=== PATIENT | female | born 1975 | race Caucasian/White ===

== ENCOUNTER 2022-03-14 04:23 | Outpatient (CLI) | payer BC, SELFPAY ==
--- NOTE | 2022-03-14 15:00 | DI.MAMMO_ITS ---
Exam(s) MAMMO SCREENING EXAM: MAMMO SCREENING CLINICAL HISTORY: SCREENING, Z12.31 TECHNIQUE: Bilateral full field digital CC and MLO mammographic images were obtained with 3D tomosyn thesis and utilizing computer aided detection (CAD). COMPARISON: None. FINDINGS: Masses/Architectural Distortion: There is an opacity in the posterior central right breast on the MLO view. This may represent overlying fibroglandular tissue, but a spot compression views recommended for further evaluation. Microcalcifications: No suspicious pleomorphic-type are seen. Skin Thickening/Nipple Retraction: None. IMPRESSION: 1. Asymmetric density in the central posterior right breast on the MLO view. 2. Further evaluation with a spot compression views recommended. Ultrasound may be indicated at that time. BI-RADS Category 0 - Assessment Incomplete: Need additional imaging evaluation Breast Density - Category C - Heterogeneously dense Breast density category C or D implies that the patient has dense breast tissue. Dense breast tissue is very common and is not abnormal but dense breast tissue can make it harder to find cancer on a ma mmogram. Also, dense breast tissue may increase their breast cancer risk. This information about the result of the mammogram report was provided to the patient to raise their awareness. Use this report when you speak with the patient about their risks for breast cancer, which includes their family hist ory. At that time, you may recommend for more screening tests (Ultrasound or MRI) as they might be us eful based on their risk. A negative radiographic report should not delay biopsy if a dominant or clinically suspicious mass is present. Up to ten percent of cancers are not identified on mammography. A negative report may reinforce clinical impression. Adenosis and dense breasts may obscure an underlying neoplasm. False positive reports average 6 to 10%. Patient will receive a letter notifying them of these results.
== END 2022-03-14 04:43 ==
PROVIDERS: Visit Provider Family Medicine
DX: Z12.31 Encounter for screening mammogram for malignant neoplasm of breast (principal); R92.8 Other abnormal and inconclusive findings on diagnostic imaging of breast
CPT/HCPCS: 77063; 77067

== ENCOUNTER → 2022-04-06 02:13 | Outpatient (CLI) | payer BC, SELFPAY ==
--- NOTE | 2022-04-06 | DI.MAMMO_ITS ---
Exam(s) MG MAMMO SCREEN CALL BACK UNI US BREAST RT LIMITED EXAM: MG MAMMO SCREEN CALL BACK UNI and U/S breast RT limited CLINICAL HISTORY: F/U MAMMO, ASYMMETRIC DENSITY CENTRAL POST RT BREAST,R92.8. TECHNIQUE: Craniocaudal and mediolateral oblique Full Field Digital Mammography views of the right b reast with Computer Aided Diagnosis followed by Tomosynthesis and right breast ultrasound. COMPARISON: Comparison is made with prior examinations. FINDINGS: Mammography/Tomosynthesis: Masses/Architectural Distortion: None seen. Microcalcifictions: No suspicious pleomorphic-type are seen. Skin Thickening/Nipple Retraction: None. Limited right breast US: Echotexture: Normal appearance of the glandular tissue. Shadowing: No suspicious foci. Cyst: There are simple cysts seen in the breast. The largest measures 0.6 cm and is located at the 9 o'clock position 5 cm from the nipple. Solid lesions: There is a well-circumscribed radially oriented hypoechoic nodule at the 5 o'clock pos ition 4 cm from the nipple. It measures 0.4 x 0.7 x 0.6 cm. It has a benign sonographic appearance likely reflecting a fibroadenoma. Ductal dilation: None. IMPRESSION: 1. No evidence of malignancy is noted. 2. A six-month follow-up right mammogram and ultrasound are requested for re-evaluation. 3. The findings were discussed with the patient on the date of the examination. BI-RADS Category 3 - 6 month - Probably Benign Finding: Recommend follow-up imaging in 6 months Breast Density - Category C - Heterogeneously dense Breast density Category C or D implies that the patient has dense breast tissue. Dense breast tissue can make it harder to find cancer on a mammogram. Dense breast tissue is also associated with an incr eased risk of breast cancer. This information about the result of the mammogram report was provided to the patient to raise their awareness. Use this report when you speak with the patient about their risks for breast cancer, which includes their family history. At that time, you may recommend additional screening tests (Ultrasoun d or MRI) as these tests may add significant information. A negative radiographic report should not delay biopsy if a dominant or clinically suspicious mass is present. Up to ten percent of cancers are not identified on mammography. A negative report may reinforce clinical impression. Adenosis and dense breasts may obscure an underlying neoplasm. False positive reports average 6 to 10%. Patient will receive a letter notifying them of these results.
== END ==
PROVIDERS: Visit Provider Family Medicine
DX: Z12.31 Encounter for screening mammogram for malignant neoplasm of breast (principal); R92.8 Other abnormal and inconclusive findings on diagnostic imaging of breast; N60.11 Diffuse cystic mastopathy of right breast; D24.1 Benign neoplasm of right breast
CPT/HCPCS: 76642; 77063; 77067

== ENCOUNTER → 2022-11-15 01:58 | Outpatient (CLI) | payer BC, SELFPAY ==
--- NOTE | 2022-11-15 | DI.US_ITS ---
Exam(s) MG MAMMO DIAGNOSTIC UNI US BREAST RT LIMITED EXAM: MG MAMMO DIAGNOSTIC UNI and U/S breast RT limited CLINICAL HISTORY: DENSE BREAST TISSUE R92.2 6 MO FU. TECHNIQUE: Craniocaudal and mediolateral oblique Full Field Digital Mammography views of the right b reast with Computer Aided Diagnosis followed by Tomosynthesis and right breast ultrasound. COMPARISON: Comparison is made with prior examinations. FINDINGS: Mammography/Tomosynthesis: Masses/Architectural Distortion: None seen. Microcalcifictions: No suspicious pleomorphic-type are seen. Skin Thickening/Nipple Retraction: None. Limited right breast US: Echotexture: Normal appearance of the glandular tissue. Shadowing: No suspicious foci. Cyst: There is again seen a cyst at the 9 o'clock position 5 cm from the nipple. It measures 4.5 x 3 x 4 mm. There is again seen a cyst seen at the 7 o'clock position 3 cm from the nipple measuring 7 x 3 x 6 mm. Solid lesions: The area noted at 5 o'clock is not visualized on the current examination. No suspicio us solid lesions are seen. Ductal dilation: None. IMPRESSION: 1. No definite evidence of malignancy is noted. 2. A six-month follow-up right mammogram and limited right breast ultrasound is requested for re-eval uation. 3. The findings were discussed with the patient on the date of the examination. BI-RADS Category 3 - 6 month - Probably Benign Finding: Recommend follow-up imaging in 6 months Breast Density - Category C - Heterogeneously dense Breast density Category C or D implies that the patient has dense breast tissue. Dense breast tissue can make it harder to find cancer on a mammogram. Dense breast tissue is also associated with an incr eased risk of breast cancer. This information about the result of the mammogram report was provided to the patient to raise their awareness. Use this report when you speak with the patient about their risks for breast cancer, which includes their family history. At that time, you may recommend additional screening tests (Ultrasoun d or MRI) as these tests may add significant information. A negative radiographic report should not delay biopsy if a dominant or clinically suspicious mass is present. Up to ten percent of cancers are not identified on mammography. A negative report may reinforce clinical impression. Adenosis and dense breasts may obscure an underlying neoplasm. False positive reports average 6 to 10%. Patient will receive a letter notifying them of these results.
== END ==
PROVIDERS: Visit Provider Family Medicine
DX: R92.8 Other abnormal and inconclusive findings on diagnostic imaging of breast (principal); N60.11 Diffuse cystic mastopathy of right breast
CPT/HCPCS: 76642; 77061; 77065; G0279

== ENCOUNTER 2023-01-08 08:47 | Day surgery (SDC) | payer BC, SELFPAY ==
--- NOTE | 2023-01-07 19:12 | COLE_ITS ---
Date of service: 01/08/23 Time of Service: 13:24 Colonoscopy Report Date of procedure: 01/08/23 Pre-op diagnosis general: Screening for colorectal cancer Post-op diagnosis procedure note: other (Colorectal polyps; Single diverticula) Procedure: 1. Colonoscopy 2. Polypectomy by cold forceps Surgeon: Pieter Miramontes Anesthesia Type: MAC Estimated blood loss (mL): 3 Pathology: other (1. cecal polypp 2. polyp @ 35cm) Complications: None Disposition: same day Indications: Screening for colorectal cancer Prep: Miralax/Dulcolax Retraction Time: >12 min Findings: Flat cecal polyp; Sessile polyp @ 35cm; single diverticula Procedure Description: After informed consent was obtained, the patient was taken to the procedure room and placed in a left decubitus position. Monitors were applied and a time out was done. The patient's name, date of , procedure, allergies to medicatio ns, and metal in their body were reviewed. The patient was then sedated. Once sedated and comfortable, a digital rectal exam was done. External exam was normal. Internal exam revealed normal sphincter tone, and no palpable masses or gross blood. The colonoscope was then introduced and advanced to the cecum under direct visualization with moderate difficulty. The ileocecal valve and appendiceal orifice were visualized. The prep was good.? ?The scope was then slowly withdrawn over 12 minutes in a circumferential manner to the rectum. In doing so, two polyps were encountered.?A flat cecal polyp and a small sessile polyp at 35cm were taken by cold forceps. There? was a single diverticula noted. The mucosa is pink and healthy.? In the rectum, the scope was retroflexed, and no internal hemorrhoids were noted.? The scope was straightened and withdrawn from the anus. The patient tolerated the procedure well, and there were no immediate complications.? The patient was taken to the Day Surgery Unit recovery?area in good condition. Follow up: await patholgoy
--- NOTE | 2023-01-07 19:13 | W.PM.DSUDISC ---
Date of service: 01/08/23 Time of Service: 13:31 Discharge Plan Disposition Patient Disposition: Home Condition: Stable Discharge Details Attending Provider: Pieter Miramontes Primary Care Provider: Justine Werner Home Meds and New Rx's Prescriptions: No Action cholecalciferol (vitamin D3) 10 mcg (400 unit) capsule 10 mcg PO DAILY bisacodyl [Dulcolax (bisacodyl)] 5 mg tablet,delayed release (DR/EC) 5 mg PO ONCE Qty: 4 0RF Rx Instructions: Take according to provider's instructions for colonoscopy prep. polyethylene glycol 3350 17 gram/dose powder 17 g PO ONCE Qty: 238 0RF Rx Instructions: To be taken as directed by prescriber's office for colonoscopy prep. loratadine [Allergy Relief (loratadine)] 10 mg tablet 10 mg PO 4-8XD estradiol 0.5 mg tablet 0.5 mg PO DAILY Patient Comments: TAKE ONE TABLET BY MOUTH FOR 21 DAYS ON AND 7 DAYS OFF Discharge Instructions Instructions: Colonoscopy (DC), Colorectal Polyps (DC), Diverticulosis (DC) Additional Instructions: Await pathology to determine follow-up for next colonoscopy Activity:: Activity as Tolerated Diet:: As Tolerated DS: Diagnosis Discharge Diagnosis (1) Diverticula of intestine: Status: Acute Asessment and Plan: A single diverticulum was seen on colonoscopy. --increase daily fiber intake --increase daily water intake (2) Colorectal polyp detected on colonoscopy: Status: Acute Asessment and Plan: --await pathology
[2023-01-08 09:37] VITALS: BP 123/74; PULSE 74; RESP 18; TEMP 36.6; O2SAT 98
[2023-01-08] MEDS: Lactated Ringers 1,000 ML 80 ML IV (09:55)
--- NOTE | 2023-01-08 11:57 | ANES.PREOP_ITS ---
General Info Date of Service Date Performed: 01/08/23 Height: 5 ft 7 in Weight: 83.4 kg Body Mass Index (BMI): 28.8 Surgical Procedure: Operation Date: 01/08/23 11:35 Proposed Procedure Side Surgeon p Colonoscopy Pieter Miramontes MD Meds Allergies and Home Medications Allergies Allergy/AdvReac Type Severity Reaction Status Date / Time No Known Allergies Allergy Unverified 01/08/23 09:33 Home Medication Medication Instructions Recorded loratadine 10 mg tablet (Allergy 10 mg PO 4-8XD 03/03/22 Relief (loratadine)) bisacodyl 5 mg tablet,delayed 5 mg PO ONCE #4 tabs 12/28/22 release (Dulcolax (bisacodyl)) cholecalciferol (vitamin D3) 10 10 mcg PO DAILY 12/28/22 mcg (400 unit) capsule polyethylene glycol 3350 17 17 g PO ONCE #238 grams 12/28/22 gram/dose oral powder estradiol 0.5 mg tablet 0.5 mg PO DAILY 01/08/23 Current Visit Medications: Current Medications Generic Name Dose Route Start Last Admin Trade Name Freq PRN Reason Stop Dose Admin Ringer's Solution 1,000 mls @ 80 mls/hr 01/08/23 06:00 01/08/23 09:55 IV 02/04/23 23:59 80 mls/hr INFUSION BROCK Administration IV Miscellaneous Supplies 1 each 01/08/23 06:00 Iv Access IV 02/04/23 23:59 DIRECTED BROCK Sodium Chloride 0 ml 01/08/23 06:00 Normal Saline Flush 10 Ml Syr IV 02/04/23 23:59 PRN PRN Sodium Chloride 0 ml 01/08/23 06:00 Normal Saline 10 Ml Vial IJ 02/04/23 23:59 DIRECTED PRN Sterile Water 0 ml 01/08/23 06:00 Water,Injection,Sterile 10 Ml Vial IJ 02/04/23 23:59 DIRECTED PRN PFSH Active Problems Active Problems: Problem Status Onset Code Screening for colon cancer Z12.11 Medical History Medical History (Updated 03/03/22 @ 14:10 by Miryam Monaco RN) Atypical nevus Hyperlipidemia Impaired fasting glucose Left lower quadrant pain Surgical History Surgical History (Updated 01/08/23 @ 09:33 by Gabriella Gilbert RN) H/O: hysterectomy March 2022 Tobacco Smoking/Tobacco Use Status: Never Alcohol Alcohol Intake: current Alcohol intake frequency: a few times a month Alcohol type: hard liquor Substance Use Substance use: Never Substance use type: does not use Vital Signs and Lab Results Vital Signs Most Recent Vital Signs in EMR: Most Recent Vital Signs Temp Pulse Resp BP Pulse Ox 36.6 C 74 18 123/74 98 01/08/23 09:37 01/08/23 09:37 01/08/23 09:37 01/08/23 09:37 01/08/23 09:37 Lab Results Blood Type / Crossmatch: No Data to Display Complete Blood Count: No Data to Display Complete Metabolic Panel: No Data to Display Liver Function Panel: No Data to Display Coagulation Panel: No Data to Display Cardiac Panel: No Data to Display Arterial Blood Gas: No Data to Display Venous Blood Gas: No Data to Display Pancreas Panel: 2 No Data to Display Thyroid Panel: No Data to Display Infectious Disease: No Data to Display Blood Cultures: No Data to Display Toxicology Panel: No Data to Display Panel: No Data to Display Anesthesia Assessment and Plan Anesthesia History Personal History: No History of Anesthesia Complications Family History: No Family History of Anesthesia Complications Exercise Tolerance Exercise Tolerance: Metabolic Equivalents>4 Pertinent Negatives Pertinent Negatives: No Symptoms of GERD Cardiac & Pulmonary Exam Cardiac Exam: Normal S1/S2 Heart Sounds Pulmonary Exam: Clear Bilateral Breath Sounds Implantable Cardiac Device Does patient have a Pacemaker or an ICD?: No Airway Exam Known Difficult Airway: No Mallampati Class: 2 Mouth Opening: Normal (> 3cm) Thyromental Distance: Greater than 3 cm Neck Range of Motion: Full ROM Neck Circumference: Normal Teeth Condition: Normal Dentition ASA Classification ASA Score: ASA 2 Emergency Case?: No NPO Status NPO Status: NPO Clears >2 hours, Solids >8 hours Status Status: History of Hysterectomy Anesthesia Plan Resuscitation Status: Full Code Anesthesia Technique: General Anesthesia Airway Planned: Natural Airway Monitors Used: Standard Monitors
[2023-01-08 11:58] VITALS: BMI 28.8
--- NOTE | 2023-01-08 13:00 | BOWEL_PTH ---
PATIENT: Jenni Wakefield LOC: [facility] U#:[id number] AGE/SX: 47/F ROOM: RE01/08/[address]: Pieter Miramontes : 1975 BED: DIS: 01/08/2023 SPEC #: [id number] RECD: 01/08/23 13:34 STATUS: BRITTANY REQ #: [id number] SURJIT: 01/08/23 13:[address]: Pieter Miramontes DEPT: Surgical Specimen RECD BY: Bere Walls ENTERED: 01/08/23 13:35 SP TYPE: Bowel OTHR DR: Justine Werner Tissues: 1 - BIOPSY BOWEL 2 - BIOPSY BOWEL Procedures: GROSS AND MICRO LEVEL 4 Comments: [id number]
[2023-01-08 13:24] VITALS: BP 100/85; PULSE 76; RESP 18; TEMP 36; O2SAT 95
[2023-01-08 13:46] VITALS: BP 106/80; PULSE 70; RESP 18; TEMP 36.5; O2SAT 97
--- NOTE | 2023-01-08 13:52 | W.ANESPOSTOP ---
Postoperative Evaluation Date, Time and Location Date Performed: 01/08/23 Time Performed: 13:52 Patient Location: Day Surgery Unit Vital Signs Most Recent Imported Vital Signs: Most Recent Vital Signs Temp Pulse Resp BP Pulse Ox 36.0 C L 76 18 100/85 95 01/08/23 13:24 01/08/23 13:24 01/08/23 13:24 01/08/23 13:24 01/08/23 13:24 Pain Score Most Recent Pain Score: Most Recent Pain Score Pain Level 2 01/08/23 13:24 Assessment Mental Status: Awake (Alert & Oriented to Patient Baseline) Airway and Respiratory Function: Patent airway with normal (patient baseline) respiratory exam Cardiovascular Function: Hemodynamically Stable Hydration Status: Adequately Hydrated Nausea & Vomiting: No Nausea or Vomiting Pain: Pt. Denies Any Pain Peripheral Nerve Block: Patient did not receive a nerve block
== END 2023-01-08 14:18 | disposition home or self-care (01) ==
PROVIDERS: PCP Nurse Practitioner; Visit Provider Surgery
PROC: 0DJD8ZZ Inspection of Lower Intestinal Tract, Via Natural or Artificial Opening Endoscopic (ICD-10-PCS; CPT 45378; principal; 2023-01-08 11:30)
DX: Z12.11 Encounter for screening for malignant neoplasm of colon; K63.5 Polyp of colon; K57.30 Diverticulosis of large intestine without perforation or abscess without bleeding; K63.89 Other specified diseases of intestine
CPT/HCPCS: 45380; 88305

== ENCOUNTER 2023-05-01 01:18 | Outpatient (CLI) | payer BC, SELFPAY ==
--- NOTE | 2023-05-01 | DI.US_ITS ---
Exam(s) US BREAST RT COMPLETE MG MAMMO DIAGNOSTIC BI EXAM: MAMMO DIAGNOSTIC BI AND COMPLETE RIGHT BREAST ULTRASOUND CLINICAL HISTORY: 6 MO F/U,R92.8,. TECHNIQUE: BILATERAL CC AND MLO mammographic images were obtained with 3D tomosynthesis technique an d utilizing computer aided detection (CAD). COMPLETE RIGHT BREAST ULTRASOUND was performed, including all 4 quadrants as well as the axillary reg ion. COMPARISON: Prior mammograms were reviewed, dating back to 2021. Her prior mammograms were 15 years ago in [place] and not available. No interval mammograms in the 15 year span. FINDINGS: MAMMOGRAM: No new significant findings in left breast. In the right breast previously described area lateral of center has benign appearance. However, on t he CC view at 6 o'clock position there is an 11 by 5 mm well-defined oval noncalcified nodule located 8 cm in from the nipple on the CC view.. This is located 9 cm in from the nipple on the MLO view. This nodule is unchanged from the mammogram of 11/15/2022. It was less evident on the mammogram of 0 03/14/2022. There are no malignant-appearing microcalcification groups in either breast. No significant architectural distortion or skin thickening-traction. COMPLETE RIGHT BREAST ULTRASOUND: At the 7 o'clock position there is a 3 millimeter septated benign microcyst which has decreased in si ze from 6 mm (11/15/2022). At the 9 o'clock position there is a 4 x 3 millimeter microcyst, unchanged from 11/15/2022. There are no other focal findings in all 4 quadrants of the right breast. There are no ultrasound fi ndings which correspond to the 11 x 5 mm nodule described above on the mammogram. Therefore it may r epresent a benign intramammary lymph node. Scanning of the right axilla is negative for adenopathy IMPRESSION: 1. No radiographic evidence of malignancy in left breast. 2. 11 x 5 mm nodule at approximately 6 o'clock position of the right breast on the mammogram as descr ibed above, with no corresponding ultrasound finding and therefore possibly a benign intramammary lym ph node. Unfortunately, there are no mammograms prior to 2021 available (15 years ago in [place] and not available). Therefore six-month mammogram follow-up of this right breast finding recommended. 3. Two benign microcysts again noted at 7 and 9 o'clock positions of the right breast on ultrasound, 1 of which has decreased in size since the ultrasound of 11/15/2022. 4. Findings are recommendations were discussed by myself with the patient today. The patient was informed of the findings and follow-up recommendations prior to leaving the [facility] t today. BI-RADS Category 3 - 6 month - Probably Benign Finding: Recommend follow-up mammography in 6 months Breast Density - Category C - Heterogeneously dense Breast density Category C or D implies that the patient has dense breast tissue. Dense breast tissue can make it harder to find cancer on a mammogram. Dense breast tissue is also associated with an incr eased risk of breast cancer. This information about the result of the mammogram report was provided to the patient to raise their awareness. Use this report when you speak with the patient about their risks for breast cancer, which includes their family history. At that time, you may recommend additional screening tests (Ultrasoun d or MRI) as these tests may add significant information. A negative radiographic report should not delay biopsy if a dominant or clinically suspicious mass is present. Up to ten percent of cancers are not identified on mammography. A negative report may reinforce clinical impression. Adenosis and dense breasts may obscure an underlying neoplasm. False positive reports average 6 to 10%. Patient will receive a letter notifying them of these results.
== END 2023-05-01 01:38 ==
PROVIDERS: PCP Nurse Practitioner; Visit Provider Family Medicine
DX: Z12.31 Encounter for screening mammogram for malignant neoplasm of breast (principal); R92.8 Other abnormal and inconclusive findings on diagnostic imaging of breast
CPT/HCPCS: 76642; 77062; 77066; G0279

== ENCOUNTER → 2023-10-30 02:16 | Outpatient (CLI) | payer BC, SELFPAY ==
--- NOTE | 2023-10-30 | DI.US_ITS ---
Exam(s) MG MAMMO DIAGNOSTIC UNI US BREAST RT LIMITED EXAM: MG MAMMO DIAGNOSTIC UNI and U/S breast RT limited CLINICAL HISTORY: 6 MO F/U, F/U MAMMO, NODULE,N63.0,R92.8. TECHNIQUE: Craniocaudal and mediolateral oblique Full Field Digital Mammography views of the right b reast with Computer Aided Diagnosis followed by Tomosynthesis and right breast ultrasound. COMPARISON: Comparison is made with prior examinations. FINDINGS: Mammography/Tomosynthesis: Masses/Architectural Distortion: The nodule in the posterior medial right breast appears stable. No suspicious nodules or areas of architectural distortion are seen. Microcalcifictions: No suspicious pleomorphic-type are seen. Skin Thickening/Nipple Retraction: None. Limited right breast US: Echotexture: Normal appearance of the glandular tissue. Shadowing: No suspicious foci. Cyst: None. Solid lesions: The hypoechoic nodule seen at the 8 o'clock position of the right breast 4 cm from the nipple is stable in size. The finding at 7 o'clock 5 cm from the nipple is also unchanged. There i s a benign-appearing lymph node at the 12 o'clock position of the right breast 5 cm from the nipple. There is also benign-appearing lymph nodes seen at 6 o'clock 5 cm from the nipple. Ductal dilation: None. IMPRESSION: 1. Overall there has been no significant change in the findings of the right breast compared to 2022. No definite evidence for malignancy at this time. 2. A six-month follow-up mammogram and ultrasound are requested for continued monitoring. At that ti me the patient should have there yearly screening left mammogram. 3. The findings were discussed with the patient on the date of the examination. BI-RADS Category 3 - 6 month - Probably Benign Finding: Recommend follow-up imaging in 6 months Breast Density - Category C - Heterogeneously dense Breast density Category C or D implies that the patient has dense breast tissue. Dense breast tissue can make it harder to find cancer on a mammogram. Dense breast tissue is also associated with an incr eased risk of breast cancer. This information about the result of the mammogram report was provided to the patient to raise their awareness. Use this report when you speak with the patient about their risks for breast cancer, which includes their family history. At that time, you may recommend additional screening tests (Ultrasoun d or MRI) as these tests may add significant information. A negative radiographic report should not delay biopsy if a dominant or clinically suspicious mass is present. Up to ten percent of cancers are not identified on mammography. A negative report may reinforce clinical impression. Adenosis and dense breasts may obscure an underlying neoplasm. False positive reports average 6 to 10%. Patient will receive a letter notifying them of these results.
== END ==
PROVIDERS: PCP Nurse Practitioner; Visit Provider Nurse Practitioner
DX: Z12.31 Encounter for screening mammogram for malignant neoplasm of breast (principal); N63.15 Unspecified lump in the right breast, overlapping quadrants
CPT/HCPCS: 76642; 77061; 77065; G0279

== ENCOUNTER → 2024-05-08 00:04 | Outpatient (CLI) | payer BC, SELFPAY ==
--- NOTE | 2024-05-08 | DI.US_ITS ---
Exam(s) US BREAST RT LIMITED MG MAMMO DIAGNOSTIC BI EXAM: MG MAMMO DIAGNOSTIC BI and U/S breast RT limited CLINICAL HISTORY: N63.0 Breast nodule. TECHNIQUE: Craniocaudal and mediolateral oblique Full Field Digital Mammography views of the right b reast with Computer Aided Diagnosis followed by Tomosynthesis and right breast ultrasound. COMPARISON: Comparison is made with prior examinations. FINDINGS: Mammography/Tomosynthesis: Masses/Architectural Distortion: The well-circumscribed nodule in the posterior central right breast is unchanged. No significant nodules or areas of architectural distortion are seen. Microcalcifictions: No suspicious pleomorphic-type are seen. Skin Thickening/Nipple Retraction: None. Limited right breast US: Echotexture: Normal appearance of the glandular tissue. Shadowing: No suspicious foci. Cyst: None. Solid lesions: There has been no change in appearance of the nodules/lymph nodes seen in the right br east. No suspicious solid nodules are seen. Ductal dilation: None. IMPRESSION: 1. No evidence of malignancy is noted. 2. Unless there is more urgent need, follow-up screening mammography is recommended, as per [employer] guidelines. 3. The findings were discussed with the patient on the date of the examination. BI-RADS Category 2 - Benign Findings Breast Density - Category C - Heterogeneously dense Breast density Category C or D implies that the patient has dense breast tissue. Dense breast tissue can make it harder to find cancer on a mammogram. Dense breast tissue is also associated with an incr eased risk of breast cancer. This information about the result of the mammogram report was provided to the patient to raise their awareness. Use this report when you speak with the patient about their risks for breast cancer, which includes their family history. At that time, you may recommend additional screening tests (Ultrasoun d or MRI) as these tests may add significant information. A negative radiographic report should not delay biopsy if a dominant or clinically suspicious mass is present. Up to ten percent of cancers are not identified on mammography. A negative report may reinforce clinical impression. Adenosis and dense breasts may obscure an underlying neoplasm. False positive reports average 6 to 10%. Patient will receive a letter notifying them of these results.
== END ==
PROVIDERS: PCP Nurse Practitioner; Visit Provider Nurse Practitioner
DX: Z12.31 Encounter for screening mammogram for malignant neoplasm of breast (principal); N63.13 Unspecified lump in the right breast, lower outer quadrant
CPT/HCPCS: 76642; 77062; 77066; G0279

== ENCOUNTER 2025-03-23 02:35 | Outpatient (CLI) | payer BC, SELFPAY ==
--- NOTE | 2025-03-23 10:41 | W.NUTRFU ---
Date of service: 03/23/25 Time of Service: 09:00 Nutrition Note NOTE: Jenni referred for MNT for diabetes prevention. No current A1C in referral paperwork. Jenni states Dx of prediabetes about 1.5 years ago but started taking it seriously and making some lifestyle changes only about 2 months ago. Father with diabetes. No Diabetes meds at home. States she is lacto-ovo vegetarian for the last 35 years. Takes estrogen d/t ovaries removed with hysterectomy about 3 years ago. Reviewed general goal for prevention is working on all lifestyle components - nutrition, exercise, sleep, stress mgt Initially assessed diet as lower in protein and fiber, can exceed recommendations for added sugar (>10% of kcals). Reviewed influences on glycemic control - having fiber present with starches and any natural sugars. combining foods and avoiding making high starch foods the main part of the meal- just side item. Reviewed added sugar and fiber goals and how to track/modify. Pt took my contact info to reach out with any questions, need for follow up or additional resources Time Spent in Nutritional Counseling and Treatment: 60 min
== END 2025-03-23 02:36 | disposition home or self-care (01) ==
LOC: DS 02:35
PROVIDERS: PCP Nurse Practitioner; Visit Provider Dietitian, Registered
DX: E11.9 Type 2 diabetes mellitus without complications (principal)
CPT/HCPCS: 00123; 97802

== ENCOUNTER 2025-05-11 02:41 | Outpatient (CLI) | payer BC, SELFPAY ==
--- NOTE | 2025-05-11 | DI.MAMMO_ITS ---
Exam(s) MAMMO SCREENING EXAM: MAMMO SCREENING CLINICAL HISTORY: screening Z12.31 TECHNIQUE: Mammograms were interpreted according to the usual protocol including computer analysis with CAD system, tomosynthesis and C-view imaging. COMPARISON: 2021 through 2023 FINDINGS: The breasts are composed of scattered fibroglandular densities, Breast Density category B. No suspicious masses or suspicious microcalcifications are seen. Stable circumscribed nodule in the posterior right breast. No skin thickening or abnormal axillary lymph nodes are seen. There has been no significant change from prior exams. IMPRESSION: BI-RADS Category 2 - Benign Findings Yearly screening mammography is recommended. Breast Density - Category B - There are scattered areas of fibroglandular density. Breast density Category C or D implies that the patient has dense breast tissue. Dense breast tissue can make it harder to find cancer on a mammogram. Dense breast tissue is also associated with an increased risk of breast cancer. This information about the result of the mammogram report was provided to the patient to raise their awareness. Use this report when you speak with the patient about their risks for breast cancer, which includes their family history. At that time, you may recommend additional screening tests (Ultrasound or MRI) as these tests may add significant information. A negative radiographic report should not delay biopsy if a dominant or clinically suspicious mass is present. Up to ten percent of cancers are not identified on mammography. A negative report may reinforce clinical impression. Adenosis and dense breasts may obscure an underlying neoplasm. False positive reports average 6 to 10%. Patient will receive a letter notifying them of these results.
== END 2025-05-11 03:01 ==
LOC: DI 02:41
PROVIDERS: PCP Nurse Practitioner; Visit Provider Nurse Practitioner
DX: Z12.31 Encounter for screening mammogram for malignant neoplasm of breast (principal); R92.323 Mammographic fibroglandular density, bilateral breasts; D24.1 Benign neoplasm of right breast
CPT/HCPCS: 77063; 77067